=== PATIENT | female | born 1960 | race Two or more races ===

== ENCOUNTER 2017-06-29 16:19 | Inpatient (IN) | payer MEDICAID, OTHER ==
[~2017-06-29] VITALS: Ht 157.5 cm; Wt 65.8 kg
[~2017-06-29 16:19] MED LIST: ALPR0.25 PO; AMLO5TAB4 PO; LOSA100T3 PO
[2017-06-29] MEDS ORDERED: IV NS 0.9% 1,000 ML BAG IV ONE (16:30)
[2017-06-29] MEDS ORDERED: PIPERACILLIN /TAZOBACTAM 3.375 G in IV D5W 50 ML IV ONE (16:30)
[2017-06-29] MEDS ORDERED: ACETAMINOPHEN ES 500 MG TABLET PO ONE (16:30)
--- NOTE | 2017-06-29 16:30 | NUR ---
PT BB STACY FROM HOME FOR COUGH X 2 WEEKS, FEVER SINCE LAST NIGHT. NOTED FEBRILE, GEN WEAKNESS. REPORTS GEN PAIN. SEEN BY MD FOR EVAL. SAFETY AND COMFORT MEASURES PROVIDED. WILL MONITOR.
[2017-06-29] MEDS ORDERED: ACETAMINOPHEN ES 500 MG TABLET ONE (16:39)
--- NOTE | 2017-06-29 16:55 | NUR ---
IV ACCESS STARTED. BLOOD AND CULTURES DRAWN FOR LABS. MEDICATED ORDERED.
[2017-06-29 17:04] LABS: BASOPHILS # (AUTO) 0.1 /CMM (0.0-0.2); BASOPHILS % (AUTO) 0.5 % (0.0-2.0); EOSINOPHILS % (AUTO) 0.1 % (0.0-6.0); HEMATOCRIT 40 % (33-45); HEMOGLOBIN 13.7 g/dL (11.5-14.8); LYMPHOCYTES # (AUTO) 2.6 /CMM (0.8-4.8); LYMPHOCYTES % (AUTO) 10.4 % (20.0-44.0); MEAN CORPUSCULAR HGB CONC 34 g/dl (31.0-36.0); MEAN CORPUSCULAR VOLUME 86 fL (82-100); MONOCYTES # (AUTO) 1.1 /CMM (0.1-1.30); MONOCYTES % (AUTO) 4.4 % (2.0-12.0); NEUTROPHILS # (AUTO) 21.2 /CMM (1.8-8.9); NEUTROPHILS % (AUTO) 84.6 % (43.0-81.0); PLATELET COUNT (AUTO) 297 /CMM (150-450); RDW COEFFICIENT OF VARIATION 13.5 (11.5-15.0); RED BLOOD CELL COUNT(AUTO) 4.65 MIL/uL (4.0-5.2)
[2017-06-29 17:08] LABS: APPEARANCE,URINE Clear (CLEAR); BILIRUBIN,URINE Negative (NEGATIVE); BLOOD, URINE Small Ery/uL (NEGATIVE); COLOR,URINE Yellow (YELLOW); KETONES,URINE Negative (NEGATIVE); LEUKOCYTE ESTERASE ,URINE Trace (NEGATIVE); NITRITE, URINE Negative (NEGATIVE); PH,URINE 7.5 (5.0-8.0); PROTEIN,URINE Negative (NEGATIVE); UGLUCOSE Negative (NEGATIVE); UROBILINOGEN,URINE 0.2 EU/dL (0.2)
[2017-06-29 17:13] LABS: ALANINE AMINOTRANSFERASE 32 U/L (12-78); ALBUMIN 3.6 g/dL (3.4-5.0); ALKALINE PHOSPHATASE 118 U/L (46-116); ASPARTATE AMINOTRANSFERASE 20 U/L (15-37); BILIRUBIN,DIRECT 0.2 mg/dL (0.0-0.2); BILIRUBIN,TOTAL 1.2 mg/dL (0.2-1.0); CALCIUM, SERUM 8.9 mg/dL (8.5-10.1); CARBON DIOXIDE 26 mmol/L (21-32); CHLORIDE 101 mmol/L (98-107); CREATININE 0.8 mg/dL (0.6-1.3); GLUCOSE 102 mg/dL (74-106); POTASSIUM 3.2 mmol/L (3.5-5.1); SODIUM SERUM 136 mmol/L (136-145); TOTAL PROTEIN, SERUM 8.5 g/dL (6.4-8.2); UREA NITROGEN, BLOOD 12 mg/dL (7-18)
[2017-06-29 17:15] LABS: TROPONIN I < 0.017 ng/mL (0.00-0.056)
[2017-06-29 18:01] LABS: BACTERIA,URINE Few /HPF (None Seen); SQUAMOUS EPITHELIAL CELL,UR Few /HPF (None Seen)
--- NOTE | 2017-06-29 19:10 | NUR ---
CALLED NURSING WALL COVERING INSTALLER AND REQUESTED A TELE BED FOR THIS PT.
[2017-06-29] MEDS ORDERED: LORA10TA7 PO (19:52)
[2017-06-29] MEDS ORDERED: PRAV10TA40 PO (19:52)
--- NOTE | 2017-06-29 20:04 | NUR ---
CALLED [facility] FOR PANEL CALL AND DR MCLEOD WAS PAGED.
[2017-06-29 20:20] VITALS: BP 155/71
--- NOTE | 2017-06-29 20:20 | NUR ---
REPORT GIVEN TO YURIY LOPEZ FOR TELE 118.
--- NOTE | 2017-06-29 20:35 | NUR ---
DATA PROCESSING CONSULTANT NOTES PATIENT BROUGHT INTO THE UNIT VIA GURNEY, SAFELY AMBULATED FROM GURNEY TO BED, ALERT AND ORIENTED X 3, ABLE TO VERBALIZE NEEDS, BREATHING EVEN, NOTED WITH SOB UPON EXERTION, IN NO ACUTE DISTRESS AT THIS TIME. PATIENT'S FAMILY AT BEDSIDE. ORIENTED PATIENT TO UNIT, ROOM, CALL LIGHT AND USE OF CALL LIGHT AND PATIENT VERBALIZED UNDERSTANDING. NOTED PATIENT TO HAVE RAC IV PERIPHERAL LINE G#22, INTACT AND PATENT. NOTED PATIENT ABLE TO AMBULATE TO BATHROOM AND AWARE OF SAFETY NEEDS. PLACED BED IN LOW POSITION, HOB ELEVATED, INITIAL VITAL SIGNS OBTAINED, PT IN STABLE CONDITION. CALL LIGHT PLACED IN EASY REACH. WILL CONTINUE TO MONITOR PATIENT.
[2017-06-29] MEDS ORDERED: hydrALAZINE HCL 25 MG TABLET PO PRN (21:00)
[2017-06-29] MEDS ORDERED: MAGNESIUM HYDROXIDE 30 ML UDC PO PRN (21:00)
[2017-06-29] MEDS ORDERED: IPRATROPIUM NEB FS 0.5 MG/2.5 ML AMPUL.NEB NEB PRN (21:00)
[2017-06-29] MEDS ORDERED: FENTANYL PF 100MCG/2ML AMPUL IV PRN (21:00)
[2017-06-29] MEDS ORDERED: diphenhydrAMINE HCL 50 MG/ML VIAL IV PRN (21:00)
[2017-06-29] MEDS ORDERED: Z GUARD REMEDY 2 OZ OINT TP PRN (21:00)
[2017-06-29] MEDS ORDERED: LORATADINE 10 MG TABLET PO SCH (21:00)
[2017-06-29] MEDS ORDERED: MAG HYDROX/AL HYDROX/SIMETH 30 ML UDC PO PRN (21:00)
[2017-06-29] MEDS: LOSARTAN POTASSIUM 50 MG TABLET PO SCH (21:12)
[2017-06-29] MEDS: IV NS 0.9% 1,000 ML IV PRN (21:13)
[2017-06-29] MEDS: ENOXAPARIN SODIUM 40 MG/0.4 ML DISP.SYRIN SQ SCH (21:14)
[2017-06-29] MEDS: HYDROCODONE/APAP 5/325MG 1 EACH TABLET PO PRN (21:28)
[2017-06-29] MEDS: BENZONATATE 100 MG CAPSULE PO PRN (21:28)
[2017-06-29] MEDS: CEFTRIAXONE 1 G in IV NS 0.9% 50 ML IV SCH (21:29)
[2017-06-29] MEDS: ZOLPIDEM TARTRATE 5 MG TABLET PO PRN (22:24)
[2017-06-29] MEDS: AZITHROMYCIN 500 MG in IV D5W 250 ML IV SCH (22:47)
[2017-06-30] VITALS: BP 140/92
[2017-06-30] MEDS ORDERED: POTASSIUM CHLORIDE 20 MEQ TAB.PRT.SR PO ONE
[2017-06-30] MEDS: ALBUTEROL FS 2.5 MG/3 ML VIAL.NEB NEB SCH ×4 (00:36→19:58)
[2017-06-30] MEDS: ACETAMINOPHEN 325 MG TABLET PO PRN ×3 (03:58→20:54)
[2017-06-30 04:00] VITALS: BP 113/57
[2017-06-30] MEDS: GUAIFENESIN 300 MG/15 ML UDC PO PRN ×3 (04:09→16:09)
--- NOTE | 2017-06-30 06:28 | NUR ---
RN CLOSING NOTES PATIENT IN BED, AWAKE, ALERT AND ORIENTED X 4, NO SOB, BREATHING EVEN AND UNLABORED IN RA, CONTINUES TO RECEIVE IVF VIA RAC G#22 ORDERED, INFUSING WELL. PATIENT CONTINUES TO BE ON TELE MONITORING NOTED WITH SINUS TACHYCARDIA @ 100-115 BPM. ALL PATIENT'S NEEDS ATTENDED TO THROUGHOUT THE SHIFT, CALL LIGHT PLACED WITHIN EASY REACH. BED PLACED IN LOW POSITION AND LOCKED IN PLACE.WILL ENDORSE TO AM SHIFT NURSE FOR CONTINUITY OF CARE.
[2017-06-30 07:08] LABS: HEMATOCRIT 34 % (33-45); HEMOGLOBIN 11.6 g/dL (11.5-14.8); LYMPHOCYTES # (AUTO) 1.9 /CMM (0.8-4.8); LYMPHOCYTES % (AUTO) 8.5 % (20.0-44.0); MEAN CORPUSCULAR HGB CONC 34 g/dl (31.0-36.0); MEAN CORPUSCULAR VOLUME 88 fL (82-100); MONOCYTES # (AUTO) 1.3 /CMM (0.1-1.30); MONOCYTES % (AUTO) 5.8 % (2.0-12.0); NEUTROPHILS # (AUTO) 18.8 /CMM (1.8-8.9); NEUTROPHILS % (AUTO) 85.7 % (43.0-81.0); PLATELET COUNT (AUTO) 243 /CMM (150-450); RDW COEFFICIENT OF VARIATION 14.5 (11.5-15.0); RED BLOOD CELL COUNT(AUTO) 3.93 MIL/uL (4.0-5.2); WHITE BLOOD COUNT (AUTO) 21.9 K/uL (4.3-11.0)
[2017-06-30 07:21] LABS: THYROID STIMULATING HORMONE 0.396 uIU/mL (0.358-3.74)
[2017-06-30 07:24] LABS: CALCIUM, SERUM 7.6 mg/dL (8.5-10.1); CREATININE 0.8 mg/dL (0.6-1.3); MAGNESIUM 1.7 mg/dL (1.8-2.4); PHOSPHORUS 2.1 mg/dL (2.5-4.9); POTASSIUM 2.9 mmol/L (3.5-5.1)
--- NOTE | 2017-06-30 07:30 | NUR ---
RN OPENING NOTES PATIENT IN BED, AWAKE, ALERT AND ORIENTED X 4, NO SOB, BREATHING EVEN AND UNLABORED ON RA, CONTINUES TO RECEIVE IVF VIA RAC G#22 ORDERED, INFUSING WELL. PATIENT CONTINUES TO BE ON TELE MONITORING NOTED WITH SINUS TACHYCARDIA @ 100-115 BPM. KEPT CLEAN DRY AND COMFORTABLE, BED PLACED IN LOW POSITION AND LOCKED IN PLACE, CALL LIGHT WITHIN EASY REACH WILL CONTINUE TO MONITOR
[2017-06-30 08:00] VITALS: BP 110/64
[2017-06-30] MEDS: ATORVASTATIN 10 MG TABLET PO SCH (08:52)
[2017-06-30] MEDS: AMLODIPINE BESYLATE 5 MG TABLET PO SCH ×2 (08:53→08:59)
[2017-06-30] MEDS: BENZONATATE 100 MG CAPSULE PO PRN ×2 (08:56→16:51)
[2017-06-30 09:46] LABS: BAND % (MANUAL) 7 % (0.0-5.0); LYMPHOCYTES % (MANUAL) 6 % (16-48); MONOCYTES % (MANUAL) 3 % (0-11.0); NEUTROPHILS % (MANUAL) 84 (42-76)
[2017-06-30] MEDS: Magnesium 1GM/D5W 100ML PREMIX 100 ML IV SCH ×2 (11:43→13:13)
[2017-06-30] MEDS: POTASSIUM CHLORIDE 20 MEQ TAB.PRT.SR PO SCH ×3 (11:43→13:23)
[2017-06-30 12:00] VITALS: BP 128/70
[2017-06-30] MEDS ORDERED: K PHOS NEUTRAL 250 MG TABLET PO ONE (12:30)
[2017-06-30] MEDS: GABAPENTIN 100 MG CAPSULE PO SCH ×2 (13:16→16:09)
[2017-06-30 16:00] VITALS: BP 121/60
[2017-06-30] MEDS: IV NS 0.9% 1,000 ML IV PRN (16:51)
--- NOTE | 2017-06-30 19:29 | NUR ---
RN CLOSING NOTES PATIENT IN BED, AWAKE, ALERT AND ORIENTED X 4, NO SOB, BREATHING EVEN AND UNLABORED ON RA, CONTINUES TO RECEIVE IVF VIA RAC G#22 ORDERED, INFUSING WELL. PATIENT CONTINUES TO BE ON TELE MONITORING. KEPT CLEAN DRY AND COMFORTABLE, BED PLACED IN LOW POSITION AND LOCKED IN PLACE, CALL LIGHT WITHIN EASY REACH, ENDORSED TO NEXT SHIFT FOR CONTINUITY OF CARE
[2017-06-30 20:00] VITALS: BP 123/56
[2017-06-30] MEDS: ZOLPIDEM TARTRATE 5 MG TABLET PO PRN (20:54)
[2017-06-30] MEDS: ENOXAPARIN SODIUM 40 MG/0.4 ML DISP.SYRIN SQ SCH (20:55)
[2017-06-30] MEDS: CEFTRIAXONE 1 G in IV NS 0.9% 50 ML IV SCH (20:56)
[2017-06-30] MEDS: AZITHROMYCIN 500 MG in IV D5W 250 ML IV SCH (21:55)
[2017-06-30] MEDS: LOSARTAN POTASSIUM 50 MG TABLET PO SCH (21:56)
[2017-06-30] MEDS: HYDROCODONE/APAP 5/325MG 1 EACH TABLET PO PRN (23:09)
[2017-07-01] VITALS: BP 100/57
[2017-07-01] MEDS: ALBUTEROL FS 2.5 MG/3 ML VIAL.NEB NEB SCH ×4 (01:29→19:54)
[2017-07-01 04:00] VITALS: BP 129/68
[2017-07-01] MEDS: ONDANSETRON HCL/PF 4 MG/2 ML VIAL IVP PRN (04:41)
[2017-07-01 07:55] LABS: CALCIUM, SERUM 7.9 mg/dL (8.5-10.1); CREATININE 0.5 mg/dL (0.6-1.3); MAGNESIUM 2.1 mg/dL (1.8-2.4); PHOSPHORUS 2.8 mg/dL (2.5-4.9)
[2017-07-01 08:00] VITALS: BP 135/78
[2017-07-01] MEDS: AMLODIPINE BESYLATE 5 MG TABLET PO SCH (08:26)
[2017-07-01] MEDS: GABAPENTIN 100 MG CAPSULE PO SCH ×3 (08:26→16:39)
[2017-07-01] MEDS: GUAIFENESIN 300 MG/15 ML UDC PO PRN (08:26)
[2017-07-01] MEDS: BENZONATATE 100 MG CAPSULE PO PRN ×2 (08:27→21:09)
[2017-07-01] MEDS: ATORVASTATIN 10 MG TABLET PO SCH (08:27)
[2017-07-01 08:41] LABS: BASOPHILS % (AUTO) 0.1 % (0.0-2.0); EOSINOPHILS % (AUTO) 1.6 % (0.0-6.0); HEMATOCRIT 34 % (33-45); HEMOGLOBIN 11.1 g/dL (11.5-14.8); LYMPHOCYTES # (AUTO) 1.6 /CMM (0.8-4.8); LYMPHOCYTES % (AUTO) 8.9 % (20.0-44.0); MEAN CORPUSCULAR HGB CONC 33 g/dl (31.0-36.0); MEAN CORPUSCULAR VOLUME 88 fL (82-100); MONOCYTES # (AUTO) 1.2 /CMM (0.1-1.30); NEUTROPHILS # (AUTO) 14.5 /CMM (1.8-8.9); NEUTROPHILS % (AUTO) 82.4 % (43.0-81.0); PLATELET COUNT (AUTO) 234 /CMM (150-450); RDW COEFFICIENT OF VARIATION 14.6 (11.5-15.0); RED BLOOD CELL COUNT(AUTO) 3.83 MIL/uL (4.0-5.2); WHITE BLOOD COUNT (AUTO) 17.6 K/uL (4.3-11.0)
[2017-07-01] MEDS: ACETAMINOPHEN 325 MG TABLET PO PRN (09:44)
[2017-07-01] MEDS ORDERED: AZIT250T PO (11:58)
[2017-07-01] MEDS ORDERED: ALBU8.5H8 INH (11:58)
[2017-07-01] MEDS ORDERED: CEFU500T66 PO (11:58)
[2017-07-01 12:00] VITALS: BP_SYST 120; BP_SYST 126; BP_DIAS 70
--- NOTE | 2017-07-01 13:10 | NUR ---
pt. c/o nausea and vrbalized she dont feel good,stacey pate notified.
[2017-07-01] MEDS: IV NS 0.9% 1,000 ML IV PRN (13:18)
[2017-07-01] MEDS: SOD FERRIC GLUC 125 MG in IV NS 0.9% 100 ML IV SCH (14:48)
[2017-07-01 16:00] VITALS: BP 125/69
[2017-07-01] MEDS: LACTOBACILLUS RHAMNOSUS GG 1 EACH CAP.SPRINK PO SCH (16:39)
--- NOTE | 2017-07-01 19:41 | NUR ---
TELECOMMUNICATIONS PROJECT MANAGER NOTES RECEIVED PT ON BED. ON ROOM AIR SATURATING WELL. PATIENT A/0 X4. ON TELE MONITOR SR-ST. IV ACCESS ON RAC #22 NS @75CC/HR. HEAD OF BED ELEVATED. SIDE RAILS UP. CALL LIGHT WITHIN REACH. FAMILY AT BEDSIDE. WILL CONTINUE TO MONITOR PT CLOSELY.
[2017-07-01 20:00] VITALS: BP_SYST 140; BP_DIAS 46; BP_DIAS 77
[2017-07-01] MEDS: CEFTRIAXONE 1 G in IV NS 0.9% 50 ML IV SCH (20:09)
[2017-07-01] MEDS: ENOXAPARIN SODIUM 40 MG/0.4 ML DISP.SYRIN SQ SCH (20:14)
[2017-07-01] MEDS: ZOLPIDEM TARTRATE 5 MG TABLET PO PRN (20:21)
[2017-07-01] MEDS: HYDROCODONE/APAP 5/325MG 1 EACH TABLET PO PRN (20:21)
[2017-07-01] MEDS: AZITHROMYCIN 500 MG in IV D5W 250 ML IV SCH (21:08)
[2017-07-01] MEDS: LOSARTAN POTASSIUM 50 MG TABLET PO SCH (21:09)
--- NOTE | 2017-07-02 00:09 | NUR ---
RESISTOR COATER NOTES PT REFUSED V/S CHECK AT 0000. EXPLAINED THE BENEFITS OF V/S CHECKING
[2017-07-02] MEDS: ALBUTEROL FS 2.5 MG/3 ML VIAL.NEB NEB SCH ×3 (01:27→12:45)
[2017-07-02 04:00] VITALS: BP 120/72
[2017-07-02] MEDS: GUAIFENESIN 300 MG/15 ML UDC PO PRN (06:30)
[2017-07-02] MEDS: BENZONATATE 100 MG CAPSULE PO PRN (06:30)
[2017-07-02] MEDS: ONDANSETRON HCL/PF 4 MG/2 ML VIAL IVP PRN ×2 (06:30→11:57)
--- NOTE | 2017-07-02 07:27 | NUR ---
PROJECT ACCOUNTANT NOTES NO ACUTE CHANGES NOTED DURING THE SHIFT. DUE MEDS GIVEN. PROVIDED COMFORT AND SAFETY. WILL ENDORSE TO THE AM NURSE FOR JESSICA.
--- NOTE | 2017-07-02 07:30 | NUR ---
COAL EQUIPMENT OPERATOR AM NOTES PATIENT IN BED, AWAKE, ALERT AND ORIENTED X 4, ON RA, NO SOB, BREATHING EVEN AND UNLABORED ON RA, CONTINUES TO RECEIVE IVF VIA RAC G#22 ORDERED, INFUSING WELL. SITE CLEAR. TELEMETRY READS SR HR 77, DENIES PAIN OR DISCOMOFORT. KEPT CLEAN DRY AND COMFORTABLE, BED PLACED IN LOW POSITION AND LOCKED IN PLACE, CALL LIGHT WITHIN EASY REACH WILL CONTINUE TO MONITOR
[2017-07-02 08:00] VITALS: BP 136/70
[2017-07-02 08:15] LABS: BASOPHILS % (AUTO) 0.5 % (0.0-2.0); EOSINOPHILS % (AUTO) 5.2 % (0.0-6.0); HEMATOCRIT 37 % (33-45); HEMOGLOBIN 12.3 g/dL (11.5-14.8); LYMPHOCYTES # (AUTO) 2.2 /CMM (0.8-4.8); LYMPHOCYTES % (AUTO) 24.5 % (20.0-44.0); MEAN CORPUSCULAR HGB CONC 34 g/dl (31.0-36.0); MEAN CORPUSCULAR VOLUME 87 fL (82-100); MONOCYTES # (AUTO) 0.6 /CMM (0.1-1.30); MONOCYTES % (AUTO) 6.7 % (2.0-12.0); NEUTROPHILS # (AUTO) 5.6 /CMM (1.8-8.9); NEUTROPHILS % (AUTO) 63.1 % (43.0-81.0); PLATELET COUNT (AUTO) 274 /CMM (150-450); RDW COEFFICIENT OF VARIATION 14.5 (11.5-15.0); RED BLOOD CELL COUNT(AUTO) 4.21 MIL/uL (4.0-5.2); WHITE BLOOD COUNT (AUTO) 8.9 K/uL (4.3-11.0)
[2017-07-02 08:25] LABS: MAGNESIUM 2.1 mg/dL (1.8-2.4); PHOSPHORUS 3.5 mg/dL (2.5-4.9); POTASSIUM 3.9 mmol/L (3.5-5.1)
[2017-07-02 08:32] LABS: CREATININE 0.5 mg/dL (0.6-1.3)
[2017-07-02] MEDS: LACTOBACILLUS RHAMNOSUS GG 1 EACH CAP.SPRINK PO SCH ×2 (08:40→16:47)
[2017-07-02] MEDS: GABAPENTIN 100 MG CAPSULE PO SCH ×3 (08:40→16:47)
[2017-07-02] MEDS: AMLODIPINE BESYLATE 5 MG TABLET PO SCH (08:41)
[2017-07-02] MEDS: ATORVASTATIN 10 MG TABLET PO SCH (08:41)
--- NOTE | 2017-07-02 09:30 | NUR ---
HORTICULTURAL FARMER NOTES DUE MEDS GIVEN.
[2017-07-02] MEDS ORDERED: GABA100C PO (11:17)
[2017-07-02 12:00] VITALS: BP 140/80
[2017-07-02] MEDS: SOD FERRIC GLUC 125 MG in IV NS 0.9% 100 ML IV SCH (14:34)
--- NOTE | 2017-07-02 14:34 | NUR ---
POLICY SPECIALIST NOTES STARTED ERICKAIT IV.
[2017-07-02 15:52] LABS: FERRITIN 441 ng/mL (8-388); GAMMA GLUTAMYL TRANSFERASE 50 U/L (5-85)
[2017-07-02 16:00] VITALS: BP 137/76
--- NOTE | 2017-07-02 18:59 | NUR ---
HVAC MECHANICAL ENGINEER NOTES PATIENT TO BE DISCHARGED TO HOME PER MD IN STABLE CONDITION. PROVIDED DC INSTRUCTIONS, MED RECON LIST AND PRESCRIPTION AND HEALTH TEACHINGS. TO FOLLOW UP WITH PCP IN 1 WEEK AND WILL MAKE OWN APPOINTMENT. RAC IV ACCESS REMOVED, PRESSURE AND GAUZE APPLIED NO BLEEDING. ALL BELONGINGS CHECKED AND RETURNED. ALL PAPERWORKS SIGNED. TO GO HOME VIA PRIVATE CAR WITH .
[2017-07-02] MEDS ORDERED: AZITHROMYCIN 250 MG TABLET PO SCH (22:00)
== END 2017-07-02 19:47 | disposition home or self-care (01) | DRG 720 ==
LOC: ER 16:20 → TELE1 20:03
PROVIDERS: ADMIT Internal Medicine; ATTEND Internal Medicine
DX: A41.9 Sepsis, unspecified organism (principal); J15.9 Unspecified bacterial pneumonia; J44.0 Chronic obstructive pulmonary disease with (acute) lower respiratory infection; J20.9 Acute bronchitis, unspecified; I10 Essential (primary) hypertension; D32.9 Benign neoplasm of meninges, unspecified; E87.6 Hypokalemia; E78.5 Hyperlipidemia, unspecified; I70.90 Unspecified atherosclerosis; D72.825 Bandemia; E61.1 Iron deficiency; M79.605 Pain in left leg; M79.604 Pain in right leg
CPT/HCPCS: 36415; 70450-TC; 71045-TC; 71250-TC; 80048-TC; 80061-TC; 80076-TC; 81000-TC; 82728-TC; 82746; 82977-TC; 83540-TC; 83605-TC; 83735-TC; 83921; 84100-TC; 84443-TC; 84484-TC; 85025-TC; 85730-TC; 87040-TC; 87081-TC; 87086-TC; 97110-TC; 97116-TC; 97530-TC; A4216; A4606; J0456; J0696; J1650; J2405; J2543; J2916; J3475; J7030; J7060; Z7610